=== PATIENT | male | born 1955 | race Caucasian/White ===

== ENCOUNTER 2022-07-06 16:51 | Outpatient (CLI) | payer OTHER, SELFPAY ==
--- NOTE | ~2022-07-06 | XR_ITS ---
Supine and upright views of the abdomen Clinical history: Hematuria Findings: Bowel gas pattern is nonspecific. No evidence for obstruction or free air. Calcified spleni c granulomas are noted. Probable prior herniorrhaphy at the left inguinal region. Osseous structures are intact. Impression: No definite renal stone. Calcified splenic granulomas. Reviewed, dictated and finalized at [facility]. Impression: No definite renal stone. Calcified splenic granulomas.
== END 2022-07-06 16:52 | disposition home or self-care (01) ==
PROVIDERS: PCP Family Medicine; Visit Provider Family Medicine
DX: R31.9 Hematuria, unspecified (principal); L92.8 Other granulomatous disorders of the skin and subcutaneous tissue
CPT/HCPCS: 74018

== ENCOUNTER 2023-05-19 10:07 | Outpatient (CLI) | payer OTHER, SELFPAY ==
--- NOTE | 2023-06-07 15:38 | WPDSLEEPSTUD ---
Sleep Study Date of Study: 05/19/23 Ordering Provider: Kash Hernandez MD Interpreting Physician: Lora Joyce DO Sleep Study Type: Split Polysomnogram Height: 1.78 m Weight: 88.451 kg Body Mass Index: 27.9 Neck Circumference (inches): 16 [place]: 3 Reason for Sleep Study Witnessed apneas, unrefreshing sleep Sleep History The patient is a 68-year-old male with chronic neck pain, coronary artery disease with hx of stent, stage 3 chronic kidney disease, type 2 diabetes, history of CVA, hyperlipidemia and hypertension that had a sleep study ordered by his primary care physician for evaluation of sleep apnea. The patient denies awakening from sleep short of breath. He occasionally awakens at night with heartburn, belching or cough. He frequently snores and it is frequently loud that others complain. He frequently has trouble sleeping when he has a cold. He denies waking up gasping for air throughout the night. He occasionally has breathing problems at night observed by himself or others. He rarely sweats excessively at night. He denies having heart palpitations or irregular heartbeats during the night. He denies falling asleep during the day and while driving. He denies cataplexy. He occasionally has trouble at school or work due to sleepiness. He occasionally feels unable to move waking up or falling asleep. He denies hypnagogic/ hypnopompic hallucinations. He denies feeling afraid of going to sleep. He denies having nightmares. He rarely remembers his dreams. He frequently has thoughts racing through his mind. He denies feeling sad or depressed. He occasionally has anxiety. He frequently has muscular tension. He frequently notices parts of his body jerk. He frequently kicks during the night. He occasionally has crawling and aching feelings in his legs and frequently has leg pain during the night. He occasionally grinds his teeth during sleep but never awakens with morning jaw pain. He is constantly bothered by pain during the day and frequently awakened by pain during the night. He constantly wakes up feeling stiff in the morning. He constantly wakes up with sore or achy muscles. He constantly wakes up with pain in the neck, spine in other joints. He goes to bed between 9-10 p.m. on both weekdays and weekends. He can take him a minimum of 1 hour to fall asleep. He wakes up 3-4 times throughout the night to urinate and is able to fall back asleep immediately. He wakes up between 7-7:30 a.m. on both weekdays and weekends. He typically gets 5-6 hours of sleep per night. He will stay in bed for 15 minutes after waking up in the morning. He currently lives with his . He denies consuming any caffeinated beverages within 2 hours of bedtime. He denies engaging in physical exercise before bedtime. He will watch television before falling asleep. He will take naps in the afternoon or the evening but they are not refreshing. He consumes 1-2 caffeinated beverages per day. He he denies tobacco, alcohol and recreational drug use. [facility] Past Medical History Medical History (Updated 06/13/23 @ 13:17 by Lora Joyce DO) Anemia Apnea BMI 26.0-26.9,adult BMI 27.0-27.9,adult BMI 28.0-28.9,adult BMI 29.0-29.9,adult Cellulitis of knee, right Chronic neck pain CKD stage 3 due to type 2 diabetes mellitus CVA (cerebral vascular accident) Diabetes mellitus with kidney complication Hyperlipidemia Hypertension Pain of left thumb Screening for prostate cancer Type 2 diabetes mellitus without complications Surgical History Surgical History H/O heart artery stent H/O knee surgery H/O shoulder surgery History of hernia surgery Hx of colonoscopy Family History Family History Father Heart disease Throat cancer Mother Heart disease Sibling Carcinoma of colon
[2023-06-13 13:27] VITALS: BMI 27.9
--- NOTE | 2023-06-13 14:07 | SLEEP ---
PT CHOSE [facility] DME 05/19/23
== END 2023-05-20 07:18 | disposition home or self-care (01) ==
LOC: ANHCSM 10:13
PROVIDERS: PCP Family Medicine; Visit Provider Family Medicine
DX: G47.10 Hypersomnia, unspecified (principal); G47.33 Obstructive sleep apnea (adult) (pediatric); G47.61 Periodic limb movement disorder
CPT/HCPCS: 95811

== ENCOUNTER 2023-06-02 09:15 | Emergency (ER) | payer OTHER, SELFPAY ==
--- NOTE | ~2023-06-02 | US_ITS ---
US venous doppler LE RT DATE: 06/02/2023 13:06 INDICATION: Pain and swelling of right lower extremity TECHNIQUE: Real-time and color flow imaging and Doppler analysis of the veins of the right lower extr emity COMPARISON: None FINDINGS: The right great saphenous vein is patent. There is spontaneous and phasic flow and normal a ugmentation and color flow signal and normal compression of the deep veins of the right lower extremi ty. IMPRESSION: No evidence of deep venous thrombosis of right lower extremity Reviewed, dictated and finalized at [facility]. Reviewed, dictated and finalized at [facility]. [facility] CUTTER
--- NOTE | ~2023-06-02 | XR_ITS ---
XR knee RT min 4V DATE: 06/02/2023 09:41 INDICATION: Pain, swelling, erythema anterior and inferior to the TECHNIQUE: 4 views including crosstable lateral COMPARISON: None FINDINGS: There is mild soft tissue swelling of the knee anterior to the proximal tibia. No radiopaqu e foreign body or subcutaneous emphysema. No underlying periosteal reaction or bone destruction. No fracture or dislocation or joint effusion. Joint spaces appear relatively preserved. Slight periarticular spurring of the patella. Femoral, popliteal and trifurcation artery calcifications. 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
[2023-06-02 09:24] VITALS: BP 128/77; PULSE 86; RESP 18; TEMP 35.9; O2SAT 100
--- NOTE | 2023-06-02 11:19 | ED.EXTPRO ---
HPI - Extremity Problem General Chief complaint: Extremity Problem,Nontraumatic Stated complaint: knee pain Time Seen by Provider: 06/02/23 10:59 History of Present Illness HPI Narrative: Patient is a 68-year-old male with history of diet controlled DM, HTN here with right knee pain. He notes that about a week ago he was playing Fetch with his dog. The next morning he woke up and he had significant knee pain on the right side. He notes that the pain is anterior to his knee and worse with movement and bearing weight. He noticed a little bit of swelling just underneath his knee. He has been wearing a copper brace over that knee and noted some increased swelling to the leg as well as some redness to the area anterior and inferior to the right knee. He notes some increased warmth and swelling to this leg. No subjective fever or chills. No additional injuries. Related Data Allergies Allergy/AdvReac Type Severity Reaction Status Date / Time No Known Allergies Allergy Unknown Verified 06/02/23 11:19 Review of Systems Review of Systems: All systems reviewed & are unremarkable except as noted in HPI and below PMFSH Past Medical History Medical History (Updated 06/02/23 @ 13:22 by Annabelle Mora MD) Anemia Apnea BMI 26.0-26.9,adult BMI 27.0-27.9,adult BMI 28.0-28.9,adult BMI 29.0-29.9,adult Chronic neck pain CKD stage 3 due to type 2 diabetes mellitus CVA (cerebral vascular accident) Diabetes mellitus with kidney complication Hyperlipidemia Hypertension Pain of left thumb Screening for prostate cancer Type 2 diabetes mellitus without complications Surgical History Surgical History H/O heart artery stent H/O knee surgery H/O shoulder surgery History of hernia surgery Hx of colonoscopy Family History Family History Father Heart disease Throat cancer Mother Heart disease Sibling Carcinoma of colon Sibling Fibromyalgia Social History Social History Smoking status: Never smoker Second hand tobacco smoke exposure: Yes Alcohol intake: current Substance use: never Substance use type: does not use Do You Feel Safe in your Home?: Yes Lack of Transportation: No Lack of Food: Never True Current Housing: I Have Housing Concerned About Future Housing: No Difficulty Paying Gas/Electric Bills: No Difficulty Paying for Meds: No Currently Unemployed: No Education: Trade/Vocational Certificate Difficulty w/ Childcare or Family Care: No Living arrangements: alone Occupation/Education: occupation Additional occupation/education comments: [employer]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 HEAD: Normocephalic, atraumatic. EYES: PERRLA and EOMI. ENT: Nares clear. Mucous membranes moist. NECK: Supple. CHEST: Clear to auscultation. No respiratory distress. HEART: Regular rate and rhythm. Normal peripheral pulses. ABDOMEN: Soft, nontender, nondistended. EXTREMITIES: Normal range of motion. Tenderness over the tibial tuberosity with some mild swelling, overlying erythema present. Diffuse edema throughout the right calf. SKIN: Warm, dry, no rash. NEURO: No focal deficits. Alert and oriented x3. PSYCH: Normal mood and affect. Course Course Emergency Course: Chart review performed. Patient here with right knee pain and swelling. Apparent injury 6 days ago. Triage vitals normal. XR performed in triage shows mild anterior swelling around the anterior tibial tuberosity, no fracture. Patient seen evaluated, nontoxic appearing. Concern for possible DVT versus musculoskeletal strain of this knee given negative x-ray. Less likely cellulitis. The erythema is actually
[2023-06-02] MEDS: ACETAMINOPHEN 325 MG TABLET 650 MG PO (13:04)
[2023-06-02 13:14] LABS: Basophils Percent Auto 0.4 % (0.2-1.2); Eosinophils Absolute Auto 0.2 K/mm3 (0-0.3); Eosinophils Percent Auto 2.1 % (0-4.4); Hematocrit 38.1 % (42.0-52.0); Hemoglobin 11.9 g/dL (14.0-18.0); Immature Granulocyte Absolute 0.04 K/mm3 (0.00-0.031); Immature Granulocyte Percent A 0.4 % (0-0.5); Lymphocytes Percent Auto 20.9 % (18.3-44.2); Mean Corpuscular HGB Conc 31.2 g/dl (32-36); Mean Corpuscular Hemoglobin 27.7 pg (26-34); Mean Corpuscular Volume 88.8 fl (80-100); Mean Platelet Volume 8.9 fl (7.4-10.4); Monocytes Absolute Auto 0.8 K/mm3 (0.1-0.6); Monocytes Percent Auto 8.4 % (2.6-8.5); Neutrophils Absolute Auto 6.2 K/mm3 (1.3-6.7); Neutrophils Percent Auto 67.8 % (45.5-73.1); Platelet Count Result 282 k/mm3 (150-375); Red Blood Count 4.29 M/mm3 (4.6-6.20); Red Cell Distribution Width 14.3 % (11.5-14.5); White Blood Count 9.1 K/mm3 (4.5-10.0)
[2023-06-02 13:34] LABS: Alanine Aminotransferase 14 U/L (6-50); Albumin Level 4.5 g/dL (3.5-5.1); Alkaline Phosphatase 86 U/L (38-126); Anion Gap 6 mmol/L (8-16); Aspartate Amino Transferase 24 U/L (17-59); Bilirubin,Total 0.6 mg/dL (0.2-1.3); Blood Urea Nitrogen 22 mg/dL (9-20); CRP 5.7 mg/dL (<1.0); Carbon Dioxide 27 mmol/L (22-30); Chloride 102 mmol/L (98-107); Estimated CRCL calculation 43 ml/min; Estimated Glomerular Filt Rate 46; Glucose 88 mg/dL (65-110); Potassium 4.3 mmol/L (3.4-5.0); Sodium 135 mmol/L (137-145)
== END 2023-06-02 14:01 | disposition home or self-care (01) ==
PROVIDERS: Emergency Provider Student in an Organized Health Care Education/Training Program; PCP Family Medicine
DX: L03.115 Cellulitis of right lower limb (principal); M25.561 Pain in right knee; R22.41 Localized swelling, mass and lump, right lower limb; E11.22 Type 2 diabetes mellitus with diabetic chronic kidney disease; I12.9 Hypertensive chronic kidney disease with stage 1 through stage 4 chronic kidney disease, or unspecified chronic kidney disease; N18.30 Chronic kidney disease, stage 3 unspecified; E78.5 Hyperlipidemia, unspecified; D64.9 Anemia, unspecified; Z86.73 Personal history of transient ischemic attack (TIA), and cerebral infarction without residual deficits; Z95.5 Presence of coronary angioplasty implant and graft; Z77.22 Contact with and (suspected) exposure to environmental tobacco smoke (acute) (chronic); M17.11 Unilateral primary osteoarthritis, right knee
CPT/HCPCS: 36415; 73564; 80053; 85025; 86140; 93971; 99284; A9270

== ENCOUNTER 2024-02-13 07:54 | Outpatient (CLI) | payer OTHER, SELFPAY ==
--- NOTE | ~2024-02-13 | XR_ITS ---
EXAMINATION: XR UGIAC w barium swallow DATE: 02/13/2024 09:12 INDICATION: Dysphagia TECHNIQUE: The patient drank thick barium, gas-producing crystals, and thin barium. Fluoroscopic spot radiographs of the hypopharynx, esophagus, stomach and proximal small bowel were obtained. Fluorosco py exposure time was 2.5 minutes. COMPARISON: None. FINDINGS: The pharynx is symmetric and without evidence of mass lesion or mucosal irregularity. Esophageal candace lity is normal. There is a approximately 3 cm long fixed stricture in the distal esophagus with irreg ular mucosal contour and lumen measuring 3 to 4 mm maximal diameter. There is a small sliding-type hi atal hernia. There was a single episode of gastroesophageal reflux with provocative maneuvers of a sm all moderate amount of contrast extending to the leland hernia and mid to distal esophagus. The stomach and proximal small bowel are normal. IMPRESSION: 1. 3 cm long moderate fixed stricture in the distal esophagus most concerning for malignancy with dif ferential including Keene's esophagus or esophagitis. Strongly recommend endoscopy for further eval uation. Dr. Rene discussed these findings with Dr. Hernandez at 9:00 AM. 2. Small sliding-type hiatal hernia with gastroesophageal reflux with provocative maneuvers. Reviewed, dictated and finalized at [facility]. IMPRESSION: 1. 3 cm long moderate fixed stricture in the distal esophagus most concerning f or malignancy with differential including Keene's esophagus or esophagitis. S trongly recommend endoscopy for further evaluation. Dr. Rene discussed thes e findings with Dr. Hernandez at 9:00 AM. 2. Small sliding-type hiatal hernia with gastroesophageal reflux with provocati ve maneuvers.
== END 2024-02-13 07:55 | disposition home or self-care (01) ==
PROVIDERS: PCP Family Medicine; Visit Provider Family Medicine
DX: R13.19 Other dysphagia (principal); K44.9 Diaphragmatic hernia without obstruction or gangrene
CPT/HCPCS: 74246